=== PATIENT | female | born 1950 | race Caucasian/White ===

== ENCOUNTER → 2017-03-05 | Outpatient (CLI) | payer MEDICARE, MEDICAID ==
[~2017-03-05] MED LIST: ADVAIR 250-501 EACH INH; ALDACTAZIDE 25/1 TAB PO; ALDACTONE25 MG PO; ASPIRIN (CHILDR81 MG PO; ATORVASTATIN CA20 MG PO; BENADRYL25 MG PO; CYMBALTA30 MG PO; LASIX20 MG PO; LIBRIUM10 MG PO; LOPRESSOR50 MG PO; LOVENOX 4040 MG/0.4 SUB-Q; MAPAP325 MG PO; MILK OF MA400 MG/5 M PO; NORCO 5-325 MG1 TAB PO; PRINIVIL (ZESTRI5 MG PO; PROVENTIL OR V6.7 GM INH; ULTRAM50 MG PO; VITAMIN C500 M1 PO
== END | disposition disaster alternative care site (69) ==
LOC: GBCOE 14:03
DX: Z12.31 Encounter for screening mammogram for malignant neoplasm of breast (principal)
CPT/HCPCS: G0202

== ENCOUNTER → 2017-06-12 | Outpatient (CLI) | payer MEDICARE, MEDICAID | LOC: LGSMG 13:43 | DX: N18.3 Chronic kidney disease, stage 3 (moderate) (principal) ==

== ENCOUNTER → 2017-06-16 | Outpatient (CLI) | payer MEDICARE, MEDICAID | LOC: GRAD 08:40 | DX: J32.9 Chronic sinusitis, unspecified (principal); J34.2 Deviated nasal septum ==